=== PATIENT | male | born 1995 | race Caucasian/White ===

== ENCOUNTER 2021-10-06 08:41 | Emergency (ER) | payer MEDICAID ==
[~2021-10-06] VITALS: Ht 172.7 cm; Wt 72.6 kg
[2021-10-06 08:41] VITALS: BP_SYST 115
[2021-10-06] MEDS ORDERED: AZITHROMYCIN 250 MG TABLET PO ONE (09:00)
[2021-10-06] MEDS ORDERED: cefTRIAXone 250 MG VIAL IM ONE (09:00)
[2021-10-06] MEDS ORDERED: LIDOCAINE 1%, 20 ML MDV 20 ML ONE (09:25)
[2021-10-06] MEDS ORDERED: cefTRIAXone 250 MG in LIDOCAINE 1%, 20 ML MDV 0.9 ML IM ONE (09:30)
[2021-10-06] MEDS ORDERED: PIPERACILLIN/TAZOBACTAM 3.375 GM/VIAL (ZOSYN) IV ONE (13:51)
[2021-10-08 20:06] LABS: CHLAMYDIA TRACHOMATIS NAA Negative (Negative); NEISSERIA GONORRHOEAE NAA Negative (Negative)
== END 2021-10-06 09:37 | disposition home or self-care (01) ==
LOC: SED 08:41
DX: N34.2 Other urethritis (principal); Z88.0 Allergy status to penicillin
CPT/HCPCS: 87491; 87591; 96372; 99283; J0696; J2001; J2543; Q0144